=== PATIENT | male | born 1985 | race Caucasian/White ===

== ENCOUNTER 2017-06-11 18:01 | Emergency (ER) | payer MEDICAID ==
[2017-06-11 20:38] LABS: BASOPHIL % 0.6 % (0-2); PLATELET COUNT 276 x10^3mcL (130-400); RED CELL DISTRIBUTION WIDTH 12.9 % (11.5-14.5)
[2017-06-11 20:50] LABS: CALCIUM 8.9 mg/dL (8.5-10.1); CARBON DIOXIDE 28.9 mmol/L (21-32); CHLORIDE SERUM 103 mmol/L (98-107); CREATININE SERUM 0.8 mg/dL (0.7-1.3); GFR1 > 60 mL/min; GLUCOSE SERUM 104 mg/dL (74-106); POTASSIUM SERUM 3.9 mmol/L (3.5-5.1); SODIUM SERUM 141 mmol/L (136-145)
[2017-06-11 20:53] LABS: ALBUMIN 3.6 g/dL (3.4-5.0); ALKALINE PHOSPHATASE 119 U/L (46-116); ALT/SGPT 36 U/L (16-63); AMYLASE 94 U/L (25-115); BILIRUBIN TOTAL 0.15 mg/dL (0.20-1.00); LIPASE 181 IU/L (73-393); TOTAL PROTEIN, SERUM 7.1 g/dL (6.4-8.2)
[2017-06-11 21:01] LABS: AMPHETAMINE QUAL UR NONE DETECTED (NEG <=1000)
[2017-06-11 21:16] LABS: AST/SGOT 27 U/L (15-37)
[2017-06-11 22:55] VITALS: BP 106/85
== END 2017-06-11 22:55 | disposition home or self-care (01) ==
LOC: ED 18:01
PROVIDERS: Emergency Medicine
DX: R07.89 Other chest pain (principal); M79.1 Myalgia; E78.5 Hyperlipidemia, unspecified
CPT/HCPCS: 36415; G0480

== ENCOUNTER 2018-02-17 20:42 | Emergency (ER) | payer MEDICAID ==
[~2018-02-17] VITALS: Ht 185.4 cm; Wt 112.5 kg
[2018-02-17 20:57] VITALS: Ht 185.4 cm; Wt 112.5 kg
[2018-02-17 21:51] VITALS: BP 130/85
== END 2018-02-17 21:51 | disposition home or self-care (01) ==
LOC: ED 20:42
DX: R51 Headache (principal); R09.81 Nasal congestion; E78.5 Hyperlipidemia, unspecified; H92.03 Otalgia, bilateral

== ENCOUNTER 2018-07-07 10:51 | Emergency (ER) | payer MEDICAID ==
[~2018-07-07] VITALS: Ht 185.4 cm; Wt 99.8 kg
[2018-07-07 10:55] VITALS: Ht 185.4 cm; Wt 99.8 kg
[2018-07-07 12:10] VITALS: BP 139/74
== END 2018-07-07 12:10 | disposition home or self-care (01) ==
LOC: ED 10:51
DX: S39.012A Strain of muscle, fascia and tendon of lower back, initial encounter (principal); E78.5 Hyperlipidemia, unspecified; V43.52XA Car driver injured in collision with other type car in traffic accident, initial encounter; Y93.I9 Activity, other involving external motion; Y92.413 State road as the place of occurrence of the external cause; Y99.8 Other external cause status
CPT/HCPCS: J1885

== ENCOUNTER 2020-01-14 10:03 | Emergency (ER) | payer MEDICAID ==
[~2020-01-14] VITALS: Ht 185.4 cm; Wt 109.3 kg
[2020-01-14 10:05] VITALS: Ht 185.4 cm; Wt 109.3 kg
[2020-01-14 11:07] LABS: BASOPHIL % 0.7 % (0-2); PLATELET COUNT 191 x10^3mcL (130-400); RED CELL DISTRIBUTION WIDTH 13.5 % (11.5-14.5)
[2020-01-14 11:32] LABS: CALCIUM 8.4 mg/dL (8.5-10.1); CARBON DIOXIDE 21.8 mmol/L (21-32); CHLORIDE SERUM 103 mmol/L (98-107); CREATININE SERUM 1.3 mg/dL (0.7-1.3); GFR1 > 60 mL/min; GLUCOSE SERUM 86 mg/dL (74-106); POTASSIUM SERUM 4.3 mmol/L (3.5-5.1); SODIUM SERUM 138 mmol/L (136-145)
[2020-01-14 11:37] LABS: ALBUMIN 3.4 g/dL (3.4-5.0); ALKALINE PHOSPHATASE 73 U/L (46-116); ALT/SGPT 46 U/L (16-63); AST/SGOT 30 U/L (15-37); BILIRUBIN TOTAL 0.4 mg/dL (0.20-1.00); TOTAL PROTEIN, SERUM 6.5 g/dL (6.4-8.2)
[2020-01-14 12:28] VITALS: BP 119/78
== END 2020-01-14 12:36 | disposition home or self-care (01) ==
LOC: ED 10:03
PROVIDERS: Emergency Medicine
DX: R07.89 Other chest pain (principal); E78.00 Pure hypercholesterolemia, unspecified; R06.02 Shortness of breath; F41.9 Anxiety disorder, unspecified; F15.10 Other stimulant abuse, uncomplicated